=== PATIENT | female | born 1955 | race Caucasian/White ===

== ENCOUNTER → 2016-10-06 | Outpatient (CLI) | payer BC ==
[~2016-10-06] MED LIST: BONIVA PO; BUPROPION75 MG PO; CITALOPRAM10 MG PO; ENJUVIA0.3 MG PO; TRAZADONE HYDR100 MG PO
== END ==
LOC: BHSO 15:00
DX: F41.1 Generalized anxiety disorder (principal)

== ENCOUNTER → 2017-01-17 | Outpatient (CLI) | payer BC | LOC: BHSO 09:07 | DX: F41.1 Generalized anxiety disorder (principal) ==

== ENCOUNTER → 2017-03-31 | Outpatient (CLI) | payer BC | LOC: BHSO 13:13 | DX: F33.1 Major depressive disorder, recurrent, moderate (principal) ==

== ENCOUNTER → 2017-09-01 | Outpatient (CLI) | payer BC | LOC: BHSO 15:05 | DX: F41.1 Generalized anxiety disorder (principal) | CPT/HCPCS: G0463 ==

== ENCOUNTER → 2017-09-29 | Outpatient (CLI) | payer BC | LOC: COL.RAD 07:55 | DX: Z00.00 Encounter for general adult medical examination without abnormal findings (principal); K44.9 Diaphragmatic hernia without obstruction or gangrene ==

== ENCOUNTER → 2017-10-31 | Outpatient (CLI) | payer BC | LOC: MC.RAD 14:13 | DX: Z12.31 Encounter for screening mammogram for malignant neoplasm of breast (principal) ==

== ENCOUNTER → 2018-01-13 | Outpatient (CLI) | payer BC | LOC: BHSO 08:48 | DX: F41.1 Generalized anxiety disorder (principal) | CPT/HCPCS: G0463 ==

== ENCOUNTER → 2018-02-21 | Outpatient (CLI) | payer BC | LOC: BHSO 09:43 | DX: F33.42 Major depressive disorder, recurrent, in full remission (principal) ==

== ENCOUNTER → 2018-05-04 | Outpatient (CLI) | payer BC | LOC: BHSO 15:54 | DX: F33.41 Major depressive disorder, recurrent, in partial remission (principal) | CPT/HCPCS: G0463 ==

== ENCOUNTER → 2018-06-16 | Outpatient (CLI) | payer BC | LOC: BHSO 14:30 | DX: F33.41 Major depressive disorder, recurrent, in partial remission (principal) | CPT/HCPCS: G0463 ==

== ENCOUNTER → 2018-08-17 | Outpatient (CLI) | payer BC | LOC: BHSO 11:31 | DX: F41.1 Generalized anxiety disorder (principal) | CPT/HCPCS: G0463 ==

== ENCOUNTER → 2019-01-09 | Outpatient (CLI) | payer BC | LOC: MC.RAD 07:36 | DX: Z12.31 Encounter for screening mammogram for malignant neoplasm of breast (principal) ==

== ENCOUNTER → 2020-10-08 | Outpatient (CLI) | payer BC | LOC: MC.RAD 15:00 | DX: Z12.31 Encounter for screening mammogram for malignant neoplasm of breast (principal) ==

== ENCOUNTER 2022-03-21 13:46 | Emergency (ER) | payer MEDICARE, BC ==
[~2022-03-21] VITALS: Ht 157.5 cm; Wt 54.5 kg
[2022-03-21 13:52] VITALS: TEMP 97
[2022-03-21 14:12] LABS: BASO % 0.5 % (0.0-2.0); EOS # 0.1 K/mm3 (0.0-0.7); EOS % 0.9 % (0.0-4.0); GRAN # 3.9 K/mm3 (1.4-6.5); GRAN % 59.3 % (42.2-75.2); HEMATOCRIT 41.9 % (37.0-47.0); HEMOGLOBIN 14.6 g/dl (12.5-16.0); LYMPH % 29.7 % (20.0-51.0); MEAN CELL VOLUME 90 fl (80.0-100.0); MEAN CORPUSCULAR HEMOGLOBIN 31 pg (27-31); MEAN CORPUSCULAR HGB CONC 35 g/dl (33.0-37.0); MEAN PLATELET VOLUME 10.6 fl (7.4-10.4); MONO # 0.6 K/mm3 (0.1-0.6); MONO % 9.4 % (1.7-9.3); PLATELET COUNT 177 K/mm3 (130-400); RED BLOOD COUNT 4.65 M/mm3 (4.10-5.30); REDCELL DISTRIBUTION WIDTH-CV 12.1 % (11.5-14.5)
[2022-03-21 14:30] LABS: ALANINE AMINOTRANSFERASE 14 U/L (0-55); ALBUMIN 4.5 gm/dL (3.4-4.8); ALKALINE PHOSPHATASE 63 U/L (40-150); ANION GAP 10 mmol/L (7-16); AST,SGOT 16 U/L (5-34); BILIRUBIN,TOTAL 0.4 mg/dL (0.2-1.2); BLOOD UREA NITROGEN 15 mg/dL (10-20); CALCIUM 9.8 mg/dL (8.4-10.2); CARBON DIOXIDE 25 mmol/L (23-31); CHLORIDE 94 mmol/L (98-107); CREATININE, serum 1.12 mg/dL (0.57-1.11); GLUCOSE 97 mg/dL (70-99); POTASSIUM 4.3 mmol/L (3.5-4.5); SODIUM 129 mmol/L (136-145); TOTAL PROTEIN 7.7 gm/dL (6.2-8.1)
[2022-03-21 14:51] LABS: TROPONIN-I < 0.010 ng/mL (0.00-0.033)
[2022-03-21 17:10] VITALS: BP 121/78; PULSE 73
== END 2022-03-21 17:15 | disposition home or self-care (01) ==
LOC: COL.ER 13:46
PROVIDERS: Physician Assistant
DX: R07.89 Other chest pain (principal); E87.1 Hypo-osmolality and hyponatremia; R00.0 Tachycardia, unspecified; I10 Essential (primary) hypertension; Z79.899 Other long term (current) drug therapy
CPT/HCPCS: J7030

== ENCOUNTER → 2022-04-07 | Outpatient (CLI) | payer MEDICARE, BC | LOC: COL.VAS 12:54 | DX: R00.2 Palpitations (principal) ==

== ENCOUNTER 2022-09-14 14:07 | Outpatient (CLI) | payer MEDICARE, BC ==
[~2022-09-14] VITALS: Ht 152.4 cm; Wt 57.7 kg
[2022-09-14] MEDS ORDERED: XANAX .25M0.25 MG/TA PO (14:42)
[2022-09-14] MEDS ORDERED: PRISTIQ 50 MG T50 MG PO (14:43)
[2022-09-14] MEDS ORDERED: LAMICTAL 25MG T25 MG PO (14:43)
[2022-09-14] MEDS ORDERED: COZAAR 50MG50 MG/TAB PO (14:44)
[2022-09-14] MEDS ORDERED: DESYREL 100MG100 MG PO (14:45)
[2022-09-14] MEDS ORDERED: MASON NATURAL2000 IU PO (14:45)
[2022-09-14 14:52] VITALS: BP 139/88; PULSE 69; TEMP 98.1
--- NOTE | 2022-09-14 15:08 | NUR ---
PT STATES SHE FEELS GOOD. NO DIZZINESS OR ITCHING. DISCUSSED PROCESS FOR NEXT APPOITNMENT. PT AMBUTATED TO LOBY TO MEET
== END 2022-09-14 15:05 | disposition home or self-care (01) ==
LOC: EUO 14:07
DX: M81.0 Age-related osteoporosis without current pathological fracture (principal)
CPT/HCPCS: J0897

== ENCOUNTER 2023-09-22 10:24 | Outpatient (CLI) | payer MEDICARE, BC ==
[~2023-09-22] VITALS: Ht 152.4 cm; Wt 54.9 kg
[~2023-09-22 10:24] MED LIST changes: +COZAAR 50MG50 MG/TAB PO; +DESYREL 100MG100 MG PO; +LAMICTAL 25MG T25 MG PO; +MASON NATURAL2000 IU PO; +PRISTIQ 50 MG T50 MG PO; +PROLIA60 MG/ML SQ; +WELLBUTRIN SR100 M1 PO; +XANAX .25M0.25 MG/TA PO
[2023-09-22 10:42] VITALS: BP 135/83; PULSE 63; TEMP 98.3
[2023-09-22] MEDS ORDERED: Denosumab 60 MG/ML SYRINGE SQ ONE (10:45)
== END 2023-09-22 10:46 ==
LOC: EUO 10:24
DX: M81.0 Age-related osteoporosis without current pathological fracture (principal)
CPT/HCPCS: J0897